=== PATIENT | female | born 1995 | race Caucasian/White ===

== ENCOUNTER 2018-06-09 22:30 | Emergency (ER) | payer OTHER, SELFPAY ==
[2018-06-09 22:54] VITALS: BP 108/64; PULSE 91; RESP 18; TEMP 37.4; O2SAT 100; BMI 30.2
--- NOTE | 2018-06-10 05:11 | ED.WOUNDLAC ---
HPI - Wound/Laceration General Chief Complaint: Wound/Laceration Stated Complaint: LEFT FOOT INJURY 15 WKS Time Seen by Provider: 06/09/18 22:30 Source: patient and family Mode of arrival: ambulatory History of Present Illness HPI narrative: Patient presents to the emergency department with chief complaint of an injury to her left great toe and 2nd toe just prior to arrival. She was walking in sandals and stubbed her toe on a concrete curb. She has full range of motion although painful. She does have a superficial abrasion. She states her tetanus is current. She is 15 weeks . She denies other injury and is otherwise free of complaint Onset (ago): minute(s) Extremity Location: Left: foot Place: outdoors Patient tetanus UTD: Yes Context: accidental Associated symptoms: none Review of Systems Review of Systems All systems reviewed & are unremarkable except as noted in HPI and below Constitutional Denies chills, Denies fever(s), Denies lethargy and Denies weakness Eyes Denies change in vision, Denies eye discharge, Denies irritation and Denies loss of vision ENT Ears, Nose, Mouth, and Throat: Denies change in voice, Denies neck pain and Denies sore throat Cardiovascular Denies chest pain, Denies irregular heart rhythm, Denies lightheadedness, Denies palpitations, Denies dyspnea, Denies dyspnea on exertion and Denies orthopnea Respiratory Denies cough, Denies dyspnea, Denies dyspnea on exertion and Denies wheezing Gastrointestinal Gastrointestinal: Denies abdominal pain, Denies change in bowel habits, Denies diarrhea, Denies nausea and Denies vomiting Genitourinary Denies hematuria, Denies flank pain, Denies urinary incontinence and Denies urinary urgency Musculoskeletal Denies neck pain Integumentary/Breasts Denies pruritus, Denies erythema, Denies rash and Reports wounds Neurologic Denies confusion, Denies loss of vision and Denies weakness Psychiatric Denies anxiety, Denies confusion, Denies depression, Denies homicidal ideation and Denies suicidal ideation Endocrine Denies palpitations Hematologic/Lymphatic Denies easy bruising Allergic/Immunologic Denies wheezing Exam Narrative Exam Narrative: GEN: AOx3 and in mild distress EYES: Pupils are equal, round, and reactive to light and accommodation. Extraoccular muscles are intact bilaterally. There is no subconjunctival hemorrhage or exudate. CHEST: Lungs are clear to auscultation bilaterally and free of wheezes, rales, or rhonchi. Heart rate is regular rhythm, there are no murmurs, clicks, rubs, or gallops. There is no chest wall tenderness. ABD: Abdomen is soft and nontender. There is no guarding or rebound. Bowel sounds are normal in all 4 quadrants. There is no mass or organomegaly. EXT: Very superficial abrasion to the dorsum of left 2nd toe. Minimal swelling but full range of motion. This is closed and neurovascularly intact. Great toe also has some pain but full range of motion and strength with cap refill less than 2 sec Full painless ROM of all extremities with no loss of sensation or strength. SKIN: Warm, pink, and dry. No erythema or rash Initial Vital Signs Initial Vital Signs: Vital Signs Temperature 99.4 F 06/09/18 22:54 Pulse Rate 91 H 06/09/18 22:54 Respiratory Rate 18 06/09/18 22:54 Blood Pressure 108/64 06/09/18 22:54 Pulse Oximetry 100 06/09/18 22:54 Procedures Orthopedic Splinting/Casting Injury #1: Side: left Lower Extremity Immobilizer: post-op shoe Course Vital Signs - 8 hr 06/09/18 22:54 Temperature 99.4 F Pulse Rate 91 H Respiratory Rate 18 Blood Pressure 108/64 Pulse Oximetry 100 MDM - Wound/Laceration MDM Narrative Medical decision making narrative: We discussed the utility of an x-ray and after talking about the unlikely event that positive findings on x-ray would change the outcome she elected to just receive splinting and forego imaging Discharge Plan Departure Patient Disposition: Home Clinical Impression: Sprain Discharge Date/Time: 06/09/18 23:40 Interventions: ED Discharge Assessment Last Done: 06/09/18 23:40 Instructions: DI for Toe Sprain Activity Restrictions/Additional Instructions: *You have been diagnosed with [ toe sprain, possible fracture ] *What to do: *Take medications as directed: over the counter tylenol *Follow up with your primary care provider in 2-3 days, call for an appointment. Let them know you were seen in the Emergency Department and that we ask that you be seen in follow up *Return to ER if you should have any new, worsening or concerning symptoms
== END 2018-06-09 23:40 | disposition home or self-care (01) ==
PROVIDERS: Emergency Provider Emergency Medicine
DX: S93.502A Unspecified sprain of left great toe, initial encounter (principal); W22.09XA Striking against other stationary object, initial encounter
CPT/HCPCS: 99282; 99283

== ENCOUNTER 2018-06-15 13:29 | Emergency (ER) | payer OTHER, SELFPAY ==
[2018-06-15 13:32] VITALS: BP 99/58; PULSE 87; RESP 16; TEMP 36.4; O2SAT 95; BMI 30.2
--- NOTE | 2018-06-15 13:37 | ED_ITS ---
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 Patient states that this morning she started having cramping so she went to take a bath. She states she got out of the bath and dried off and walked over to the sink and then had a loss of fluid. She states that it did create a ?puddle ?she states that she continue to leak as she walked into the bedroom. She continues to have cramping. No vaginal bleeding. No urinary symptoms. No change in bowel symptoms. Her 1st resulted in a spontaneous miscarriage at 10 weeks. Her 2nd resulted in a secondary to breech presentation. Her 3rd was a vaginal after term without any complications. Patient : Yes Related Data Allergies Allergy/AdvReac Type Severity Reaction Status Date / Time No Known Drug Allergies Allergy Verified 06/15/18 14:22 Review of Systems Constitutional Denies fever(s) Cardiovascular Denies chest pain and Denies dyspnea Respiratory Denies dyspnea Gastrointestinal Gastrointestinal: Reports cramping, Denies nausea and Denies vomiting Genitourinary Denies urinary incontinence, Denies urinary hesitancy, Denies urinary urgency and Reports vaginal discharge Comments: Loss of vaginal fluid Musculoskeletal Denies myalgias and Denies arthralgias Integumentary/Breasts Denies lesions and Denies rash Hematologic/Lymphatic Denies easy bleeding and Denies easy bruising PMFSH - Past Medical History Medical history: Reports no medical history Surgical history: Reports no surgical history Patient : Yes Psychiatric history: Reports no psych history Family history: Reports no significant family history Exam Initial Vital Signs Initial Vital Signs: Vital Signs Temperature 97.5 F L 06/15/18 13:32 Pulse Rate 87 06/15/18 13:32 Respiratory Rate 16 06/15/18 13:32 Blood Pressure 99/58 L 06/15/18 13:32 Pulse Oximetry 95 06/15/18 13:32 Const General: cooperative, healthy appearing, comfortable, well developed, well groomed and No acute distress Orientation: alert, awake and oriented x3 HENMT Head: normal to inspection and normocephalic Resp Effort & Inspection: normal respiratory effort Auscultation: clear to auscultation bilaterally Cardio Rate: regular rate Rhythm: regular rhythm GI Inspection: non-distended Palpation: soft, No firm and No tender Skin Lesions: no lesions Rashes: no rashes Neuro General: alert, awake and oriented x3 Cognition: normal cognition Speech: speech normal Gait: normal gait Motor: muscle tone normal throughout Sensory Exam: no sensory deficits noted Extrem General: normal to inspection and capillary refill normal Psych Appearance: grossly normal and well kempt Course Orders Ordered: ED Orders 06/15/18 13:35 US OB limited Stat 06/15/18 13:50 ABO RH Type Stat Basic Metabolic Panel Stat Complete Blood Count AUTO DIFF Stat HCG Quantitative Stat Vital Signs - 8 hr 06/15/18 13:32 06/15/18 14:43 06/15/18 16:02 Temperature 97.5 F L 98.0 F Pulse Rate 87 81 88 Respiratory Rate 16 16 18 Blood Pressure 99/58 L Blood Pressure [Right Arm] 112/58 L 106/57 L Pulse Oximetry 95 98 99 MDM - OB/Uterine Contractions Lab Data Attestation: I reviewed the patient's lab results. Result diagrams: 06/15/18 13:50 06/15/18 13:50 Lab Results 06/15/18 06/15/18 06/15/18 Range/Units 13:50 13:50 13:50 WBC 9.9 (4.5-11.0) X10^3/uL RBC 4.25 (4.0-5.2) X10^6/uL Hgb 11.7 L (12.0-16.0) g/dL Hct 34.6 L (36-46) % MCV 81.4 (80-100) fL MCH 27.4 (26-34) PG MCHC 33.6 (30-36) % RDW 13.9 (11.6-14.8) % Plt Count 257 (150-400) X10^3/uL Neut % (Auto) 73.2 (50-75) % Lymph % (Auto) 16.1 L (25-40) % Lucas % (Auto) 8.9 (3-14) % Eos % (Auto) 1.2 L (2-4) % Baso % (Auto) 0.6 (0-2) % Neut # (Auto) 7200 H (7827-2721) /uL Sodium 140 (137-145) mmol/L Potassium 3.9 (3.4-5.1) mmol/L Chloride 109 H (98-107) mmol/L Carbon Dioxide 21 L (22-32) mmol/L BUN 8 (7-17) mg/dL Creatinine 0.40 L (0.52-1.04) mg/dL Estimated GFR > 60.0 (>60) mL/min BUN/Creatinine Ratio 20.0 (6-22) Glucose 97 (70-100) mg/dL Calcium 8.6 (8.4-10.2) mg/dL HCG, Quant 93774 Cancelled mIU/mL Blood Type 06/15/18 Range/Units 13:50 WBC (4.5-11.0) X10^3/uL RBC (4.0-5.2) X10^6/uL Hgb (12.0-16.0) g/dL Hct (36-46) % MCV (80-100) fL MCH (26-34) PG MCHC (30-36) % RDW (11.6-14.8) % Plt Count (150-400) X10^3/uL Neut % (Auto) (50-75) % Lymph % (Auto) (25-40) % Lucas % (Auto) (3-14) % Eos % (Auto) (2-4) % Baso % (Auto) (0-2) % Neut # (Auto) (0449-1222) /uL Sodium (137-145) mmol/L Potassium (3.4-5.1) mmol/L Chloride (98-107) mmol/L Carbon Dioxide (22-32) mmol/L BUN (7-17) mg/dL Creatinine (0.52-1.04) mg/dL Estimated GFR (>60) mL/min BUN/Creatinine Ratio (6-22) Glucose (70-100) mg/dL Calcium (8.4-10.2) mg/dL HCG, Quant mIU/mL Blood Type B Positive Imaging Data US - abdomen: Radiologist's impression: [address] [id number] Ultrasound Report Signed Patient: MAGGIE CHRISTENSEN LMR#: [id number] : 1995Acct:[id number] Age/Sex: te of Service: 06/15/18 Loc: ED Accession Number: [id number] Procedure: US OB limited Ordering Provider: Dmitry Shipman D.O. PROCEDURE: US OB LIMITED INDICATIONS: 16 weeks EGA cramping and loss of fluid OUTSIDE/PRIOR DATING DATA: Last menstrual period (LMP): 02/22/18. LMP-based estimated date of delivery (NEELAM): 11/29/18. First dating scan (date and location): This study. Estimated date of delivery (NEELAM) from first dating scan: 11/29/18, plus or -10 days. TECHNIQUE: Real-time scanning was performed of the fetus, with image documentation and biometric measurements. Endovaginal scanning: Not needed for this examination. COMPARISON: None. FINDINGS: General: A single living intrauterine gestation is present. Presentation: Transverse head right. Placenta: Placental position is posterior, without previa. Amniotic fluid index: 17.4 cm, normal range is 5-24 cm. heart rate: 135 beats per minute. Maternal cervical canal: 4.0 cm long. Normal lower limit is 2.5 cm. biometrics: Biparietal diameter: A 3.2 cm, 16 weeks zero days Head circumference: 12.1 cm, 16 weeks zero days Abdominal circumference: 10.4 cm, 16 weeks 2 days Femur length: 2.1 cm, 16 weeks 2 days Estimated gestational age from initial scan: not applicable. Composite gestational age from present scan: 16 weeks one day Estimated weight and percentile: 151 g, 51st percentile Measurement variability for biometric dating: +/- 7 days from 14 weeks to 15 weeks 6 days gestation, +/- 10 days from 16 weeks to 21 weeks 6 days gestation, +/- 2 weeks from 22 weeks to 27 weeks 6 days gestation, +/- 3 weeks for 28 weeks gestation or later. weight reference: 4500 g or EFW >90/95% is considered macrosomia or large for gestational age. EFW <10% is small for gestational age. EFW 5% or less is considered intra-uterine growth restriction. Other: Not applicable. IMPRESSION: Appropriate interval growth, 16 week one day gestation, delivery date projected to be centered on 11/29/18, plus or -10 days. anatomic survey is recommended at 21 weeks gestation. Normal amniotic fluid volume. Dictated by: Patrice Bello M.D. on 06/15/2018 at 15:18 Approved by: Patrice Bello M.D. on 06/15/2018 at 15:22 MDM Narrative Medical decision making narrative: Patient with ultrasound showing baby at appropriate age with a good heart rate and normal amount of fluid. Discussed the case with Dr. Sears who is on-call for OB who states that an a female just a issa at this age with that much reported fluid loss and a normal BA on her ultrasound it is unlikely that which she felt early was amniotic fluid. She also states that if this was amniotic fluid at this gestational weight she would be an inevitable . I discussed this with the patient. She has a follow-up with her OB provider next Sunday. She was given return precautions. She expressed understanding and agreement with plan. Discharge Plan Departure Patient Disposition: Home Clinical Impression: , Abdominal cramping Instructions: DI for -- Discomforts and Remedies Activity Restrictions/Additional Instructions: Continue all of your medications that you are taking. Keep your appointment with your Ob that she have scheduled for next week. Return to the emergency department for any new symptoms, worsening symptoms, vaginal bleeding, or any other new or concerning symptoms.
[2018-06-15 14:15] LABS: Add Manual Diff / Slide Review NO; Basophils Percent Auto 0.6 % (0-2); Eosinophils Percent Auto 1.2 % (2-4); Hematocrit 34.6 % (36-46); Hemoglobin 11.7 g/dL (12.0-16.0); Lymphocytes Percent Auto 16.1 % (25-40); Mean Corpuscular HGB Conc 33.6 % (30-36); Mean Corpuscular Hemoglobin 27.4 PG (26-34); Mean Corpuscular Volume 81.4 fL (80-100); Monocytes Percent Auto 8.9 % (3-14); Neutrophils Absolute Auto 7200 /uL (3000-5900); Neutrophils Percent Auto 73.2 % (50-75); Platelet Count 257 X10^3/uL (150-400); Red Blood Cell Count 4.25 X10^6/uL (4.0-5.2); Red Cell Distribution Width 13.9 % (11.6-14.8); White Blood Cell Count 9.9 X10^3/uL (4.5-11.0)
[2018-06-15 14:16] LABS: Blood Urea Nitrogen 8 mg/dL (7-17); Calcium 8.6 mg/dL (8.4-10.2); Carbon Dioxide 21 mmol/L (22-32); Chloride 109 mmol/L (98-107); Estimated Glomerular Filt Rate > 60.0 mL/min (>60); Glucose 97 mg/dL (70-100); HEMOLYSIS < 15 (0-50); Potassium 3.9 mmol/L (3.4-5.1); Sodium 140 mmol/L (137-145)
[2018-06-15 14:43] VITALS: BP 112/58; PULSE 81; RESP 16; TEMP 36.7; O2SAT 98
[2018-06-15 15:33] LABS: HCG Quantitative /Beta subunit 40523 mIU/mL
[2018-06-15 16:02] VITALS: BP 106/57; PULSE 88; RESP 18; O2SAT 99
[2018-06-15 17:12] VITALS: BP 100/49; PULSE 84; RESP 12; O2SAT 94
== END 2018-06-15 17:14 | disposition home or self-care (01) ==
PROVIDERS: Emergency Provider Emergency Medicine
DX: O26.892 Other specified pregnancy related conditions, second trimester (principal); R10.9 Unspecified abdominal pain; Z3A.16 16 weeks gestation of pregnancy
CPT/HCPCS: 36591; 76815; 80048; 81003; 84702; 85025; 86900; 86901; 99282; 99284